=== PATIENT | male | born 1990 | race Caucasian/White ===

== ENCOUNTER 2017-01-14 00:25 | Emergency (ER) | payer SELFPAY ==
[~2017-01-14] VITALS: Ht 188 cm; Wt 127.0 kg
[2017-01-14 00:32] VITALS: BP 137/82
--- NOTE | 2017-01-14 01:14 | NUR ---
TO ER BED 8
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
--- NOTE | 2017-01-14 01:36 | NUR ---
Patient being evaluated by physician at bedside.
--- NOTE | 2017-01-14 02:00 | NUR ---
Patient discharged with v/s stable. Written and verbal after care instructions given and explained. Patient alert, oriented and verbalized understanding of instructions. Ambulatory with steady gait. All questions addressed prior to discharge. ID band removed. Patient advised to follow up with PMD. Rx of FLEXERIL 5 MG given. Patient educated on indication of medication including possible reaction and side effects. Opportunity to ask questions provided and answered.
[2017-01-14 02:13] VITALS: BP 125/68
== END 2017-01-14 02:00 | disposition home or self-care (01) ==
LOC: MED 00:25
DX: S13.4XXA Sprain of ligaments of cervical spine, initial encounter (principal); V49.40XA Driver injured in collision with unspecified motor vehicles in traffic accident, initial encounter; Y93.89 Activity, other specified; Y92.488 Other paved roadways as the place of occurrence of the external cause; Y99.8 Other external cause status
CPT/HCPCS: 70490; 71010; 72125; 99284

== ENCOUNTER 2019-02-18 12:10 | Emergency (ER) | payer MEDICAID ==
[~2019-02-18] VITALS: Ht 157.5 cm; Wt 104.3 kg
[2019-02-18 12:38] VITALS: BP 115/71
--- NOTE | 2019-02-18 14:26 | NUR ---
PT AMBULATED TO CHAIR. C/O HESITENCY UPON URINATION AND HEMATURIA. BLOOD CLOTS NOTICED UPON URINATION. PT DENIES ANY PAIN. C/O DIZZINESS AND NAUSEA X1 DAY. ABD SOFT, ROUND, NONTENDER TO PALP. PT CALM SITTING WITH FAMILY MEMBER. VSS AT THIS TIME. MEDHX: DENIES ALLERGIES: DENIES
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
[2019-02-18 16:17] LABS: BILIRUBIN,URINE NEGATIVE (NEGATIVE); BLOOD, URINE 2+ (NEGATIVE); LEUKOCYTE ESTERASE ,URINE NEGATIVE (NEGATIVE); NITRITE, URINE NEGATIVE (NEGATIVE); PH,URINE 7.5 (5.0-9.0); UGLUCOSE NEGATIVE (NEGATIVE)
[2019-02-18 16:21] LABS: APPEARANCE,URINE BLOODY (CLEAR); COLOR,URINE RED (YELLOW)
[2019-02-18 16:23] LABS: RBC,URINE TOO NUMEROUS TO COUN /HPF (0-5); WBC,URINE NONE SEEN /HPF (0-5)
--- NOTE | 2019-02-18 16:42 | NUR ---
PT RESTING IN BED WITH EYES CLOSED, VSS.
--- NOTE | 2019-02-18 16:55 | NUR ---
PT STATED THAT HE HAS AN EMERGENCY, PT ELOPED AT THIS TIME Addendum: 02/18/19 at [address] MORENO MADE AWARE.
== END 2019-02-18 16:55 | disposition left against medical advice (07) ==
LOC: MED 12:10
DX: R31.9 Hematuria, unspecified (principal); R42 Dizziness and giddiness
CPT/HCPCS: 81001; 99283